=== PATIENT | female | born 1935 | race Caucasian/White ===

== ENCOUNTER 2020-05-15 09:49 | Emergency (ER) | payer OTHER ==
[~2020-05-15] VITALS: Ht 162.6 cm; Wt 85.3 kg
[2020-05-15] MEDS ORDERED: LIPITOR40 M1 PO (10:13)
[2020-05-15] MEDS ORDERED: COZAAR25 MG PO (10:13)
[2020-05-15] MEDS ORDERED: LODOSYN25 MG PO (10:13)
== END 2020-05-15 13:21 | disposition home or self-care (01) ==
LOC: ER 09:49
DX: G89.11 Acute pain due to trauma (principal); M25.561 Pain in right knee